=== PATIENT | female | born 1940 | race Caucasian/White ===

== ENCOUNTER 2017-10-19 07:02 | Inpatient (IN) | payer OTHER ==
[2017-09-21 11:48] VITALS: Ht 162.6 cm; Wt 72.3 kg
--- NOTE | 2017-09-21 12:22 | PAT Medication Instructions ---
Service Date Sep 21, 2017. Current Home Medication List Acetaminophen (Tylenol Arthritis Ext Rel), 1,300 MG PO PRN Alendronate Sodium (Fosamax), 70 MG PO WK Aspirin (Aspirin Ec), 325 MG PO QAM Atorvastatin (Lipitor), 20 MG PO QPM Lisinopril (Zestril), 20 MG PO QAM [Niacin], 4 TAB PO HS Medication Instructions For Your Scheduled Surgery -Continue as directed: Alendronate Sodium (Fosamax), 70 MG PO WK - Check with your surgeon for instructions for: Aspirin (Aspirin Ec), 325 MG PO QAM - Hold the following medications the night before: [Niacin], 4 TAB PO HS - Hold the following medications the morning of surgery: Lisinopril (Zestril), 20 MG PO QAM - Take the following medications the morning of surgery with a sip of water: Acetaminophen (Tylenol Arthritis Ext Rel), 1,300 MG PO PRN (if needed, can be taken up to four hours before surgery) - Take the following medications as scheduled the night before surgery: Acetaminophen (Tylenol Arthritis Ext Rel), 1,300 MG PO PRN Atorvastatin (Lipitor), 20 MG PO QPM If you have any questions please call us at [phone] or [phone] or [phone]
[2017-09-21 12:51] LABS: BASO % 0.4 %; BASO ABS # 0.03 K/uL (0-0.2); EOS % 2.4 %; EOS ABS # 0.19 K/uL (0-0.5); HEMATOCRIT 40.3 % (37-47); HEMOGLOBIN 14.6 g/dL (12.0-16.0); IG# 0.03 K/uL (0.00-0.02); LYMPH % 18.3 %; LYMPH ABS # 1.45 K/uL (1.2-3.4); MEAN CELL VOLUME 79.3 fL (80-100); MEAN CORPUSCULAR HEMOGLOBIN 28.7 pg (25-34); MEAN CORPUSCULAR HGB CONC 36.2 g/dl (32-36); MEAN PLATELET VOLUME 10.2 fL (7.4-10.4); MONO % 7.6 %; NEUT % 70.9 %; NEUT ABS # 5.62 K/uL (1.4-6.5); PLATELET COUNT 263 K/uL (130-400); RED CELL DISTRIBUTION WIDTH CV 15.1 % (11.5-14.5); RED CELL DISTRIBUTION WIDTH SD 43.6 fL (36.4-46.3); WHITE BLOOD COUNT 7.92 K/uL (4.8-10.8)
[2017-09-21 12:59] LABS: INR 0.9 (0.9-1.1); PTT PATIENT 23.3 SECONDS (21.0-31.0)
--- NOTE | 2017-09-21 13:08 | DIAGNOSTIC IMAGING REPORT ---
CHEST 2 VIEWS ROUTINE CLINICAL HISTORY: 77 years-old Female presenting with preoperative assessment. TECHNIQUE: PA and lateral views of the chest were obtained. COMPARISON: None. FINDINGS: Cardiomediastinal silhouette normal. Lungs and pleural spaces clear. Osseous structures normal. Upper abdomen normal. IMPRESSION: 1. No acute cardiopulmonary disease. Electronically signed by: Gallo Parekh M.D. 09/21/2017 1:06 PM Dictated Date/Time: 09/21/2017 1:06 PM
[2017-09-21 13:13] LABS: HEMOGLOBIN A1C 6.3 % (4.5-5.6)
[2017-09-21 13:51] LABS: ALBUMIN 3.9 gm/dl (3.4-5.0); CALCIUM 8.7 mg/dl (8.5-10.1); CREATININE 0.63 mg/dl (0.60-1.20); POTASSIUM 3.8 mmol/L (3.5-5.1)
--- NOTE | 2017-09-28 14:03 | HISTORY & PHYSICAL EXAMINATION ---
DATE OF ADMISSION: 10/19/2017 CHIEF COMPLAINT: Right knee pain. HISTORY OF PRESENT ILLNESS: Mr. Reddy is a 77-year-old female with a multiple year history of right knee pain. The patient rates her pain at 8/10. She has pain with her daily activities. She has limited standing and walking tolerance. Pain is worse with weightbearing. The patient has had injections, bracing, home exercise program and Tylenol without relief. She currently ambulates with a cane. She has failed conservative treatment and is scheduled for an elective right knee replacement. PAST MEDICAL HISTORY: Lyme disease, hypertension, hypercholesterolemia, borderline diabetes and a history of colon cancer. She denies heart disease or DVT. PAST SURGICAL HISTORY: Hysterectomy and colostomy. SOCIAL HISTORY: The patient denies alcohol or tobacco use. She lives in a single story home with her and is retired. FAMILY HISTORY: Negative for DVT. MEDICATIONS: Atorvastatin 20 mg daily, lisinopril 20 mg daily, alendronate 70 mg weekly, aspirin 81 mg daily, Tylenol p.r.n., and niacin 500 mg. ALLERGIES: None. REVIEW OF SYSTEMS: See HPI. Ten other systems reviewed, all negative. PHYSICAL EXAMINATION: VITAL SIGNS: Height 5 feet 4 inches, weight 159 pounds, and BMI 27. GENERAL: This is a well-developed and well-nourished female, who is alert and oriented x3. Mood and affect are appropriate. HEENT: Normocephalic and atraumatic. Mucous membranes are moist and intact. NECK: Supple without lymphadenopathy. HEART: Regular rate and rhythm without murmurs, rubs or gallops. LUNGS: Clear to auscultation without wheezes or rhonchi. ABDOMEN: Soft and nontender. Bowel sounds are equal and active. She does have colostomy bag. EXTREMITIES: No ecchymosis, redness or warmth. She has varus deformity. Range of motion is from 5-110 degrees with no laxity. She has moderate effusion. She is neurovascularly intact with +5/5 strength. X-RAY EXAMINATION: AP and lateral views show joint space narrowing and osteophyte formation. IMPRESSION: Degenerative joint disease, right knee. PLAN: The patient will be admitted for a right total knee arthroplasty. We will plan on aspirin for DVT prophylaxis. The patient will have [facility] for home physical therapy on discharge. PCP is Dr. Landa in [place].
[~2017-10-19] VITALS: Ht 162.6 cm; Wt 72.3 kg
[2017-10-19] VITALS (9 sets, daily range): BP systolic 109–146; BP diastolic 64–99; PULSE 77–103; TEMP 36.4–36.7; O2SAT 92–96
[~2017-10-19 07:02] MED LIST: ACET1TAB84 PO; ACETAMINOPHEN 500 MG TAB PO SCH; ALEN70TA2 PO; ASPI325T39 PO; ATOR-22 PO; BUPIVACAINE 0.5 % 5 MG/1 ML PF 10ML VIAL ONE; CEFAZOLIN 1000MG IV PUSH 7.5 ML IV SCH; CeleBREX 200 MG CAP PO SCH; DEXAMETHASONE 4 MG TAB PO SCH; FAMOTIDINE 20 MG TAB PO SCH; GABAPENTIN 300 MG CAP PO SCH; LACTATED RINGER'S 1000ML 1,000 ML IV SCH; LACTATED RINGER'S 1000ML 500 ML IV SCH; LISI-725 PO; METOCLOPRAMIDE HCL 10 MG TAB PO SCH; NIACIN PO; ROPIVACAINE 0.5% 5 MG/ML 30 ML VIAL ONE; ROPIVACAINE 5MG/ML 30 ML 150 MG, BUPIVACAINE 0.5% MPF INJ 30 ML, EpINEphrine HCL INJ 0.... INFIL SCH
--- NOTE | 2017-10-19 07:20 | History & Physical Bridge Note ---
H&P Re-Evaluation Bridge Note: I have examined the patient, reviewed the History & Physical and in the interval since the performance of the History & Physical I have noted the following changes of clinical significance: No changes noted
[2017-10-19] MEDS ORDERED: BUPIVACAINE 0.25% 30 ML VIAL ONE (07:30)
[2017-10-19] MEDS ORDERED: ATROPINE SULFATE 0.1 MG/ML 5ML SYR IV PRN (07:45)
[2017-10-19] MEDS ORDERED: HYDROmorphone INJ 1 MG/ML SYR IV PRN (07:45)
[2017-10-19] MEDS ORDERED: EpHEDrine SULFATE INJ 50 MG/ML AMP IV PRN (07:45)
[2017-10-19] MEDS ORDERED: FENTANYL CITRATE INJ 50 MCG/1 ML 2 ML VIAL IV PRN (07:45)
[2017-10-19] MEDS ORDERED: ONDANSETRON INJ 2 MG/ML 2 ML VIAL IV PRN ×2 (07:45→11:00)
[2017-10-19] MEDS ORDERED: PHENYLEPHRINE 100MCG/ML 5ML SYR IV PRN (07:45)
[2017-10-19 08:19] LABS: ISTAT CREATININE 0.5 mg/dl (0.6-1.3); ISTAT IONIZED CALCIUM 1.15 mmol/l (1.12-1.32); ISTAT POTASSIUM 3.8 mEq/L (3.3-5.0)
[2017-10-19] MEDS ORDERED: BACITRACIN 50000 UNIT VIAL ONE (08:40)
[2017-10-19] MEDS ORDERED: POVIDONE-IODINE OP SOLN 30 ML BTL ONE (08:40)
[2017-10-19] MEDS ORDERED: ORTHO JOINT ANESTHETIC ONE (08:40)
[2017-10-19] MEDS ORDERED: MIDAZOLAM HCL 1 MG/ML 2ML VIAL ONE (09:13)
[2017-10-19] MEDS ORDERED: FENTANYL CITRATE INJ 50 MCG/1 ML 2 ML VIAL ONE (09:14)
[2017-10-19] MEDS: TRANEXAMIC ACID INJ 1,000 MG x 2 Bags IV SCH ×4 (09:15→12:59)
[2017-10-19] MEDS ORDERED: PROPOFOL IV EMULSION 10 MG/ML 20 ML VIAL IV ONE (09:59)
[2017-10-19] MEDS ORDERED: EpHEDrine SULFATE 50MG/5ML SYR ONE (09:59)
[2017-10-19] MEDS ORDERED: LIDOCAINE HCL 2% 2 ML VIAL (20MG/ML) ONE (09:59)
[2017-10-19] MEDS ORDERED: PHENYLEPHRINE 100MCG/ML 5ML SYR ONE (10:30)
[2017-10-19] MEDS ORDERED: METOCLOPRAMIDE HCL INJ 5 MG/ML 2 ML VIAL IV PRN (11:00)
[2017-10-19] MEDS ORDERED: MAGNESIUM HYDROXIDE SUSP 30 ML UDC PO PRN (11:00)
[2017-10-19] MEDS ORDERED: ALUMINUM/MAGNESIUM/SIMETH (MAALOX MAX) 30 ML UDC PO PRN (11:00)
[2017-10-19] MEDS ORDERED: ZOLPIDEM TARTRATE 5 MG TAB PO PRN (11:00)
[2017-10-19] MEDS ORDERED: MoRPHine SULFATE 2 MG/ML CARP IV PRN (11:00)
[2017-10-19] MEDS ORDERED: CEFAZOLIN IV 1,000 MG in DEXTROSE 5% 50ML 50 ML IV SCH (11:00)
--- NOTE | 2017-10-19 11:00 | OPERATIVE REPORT ---
DATE OF OPERATION: 10/19/2017 PREOPERATIVE DIAGNOSIS: Osteoarthritis, right knee. POSTOPERATIVE DIAGNOSIS: Osteoarthritis, right knee. PROCEDURE: Right total knee arthroplasty. SURGEON: Dr. Guidry. PROGRAMS ASSISTANT: Omkar Mcclain PA-C ANESTHESIA: Spinal. COMPLICATIONS: None. OPERATION AND FINDINGS: Following induction of spinal anesthesia, the patient's right leg was prepped and draped in the usual sterile manner. Limb was exsanguinated with an Esmarch bandage and tourniquet was inflated to 350 mmHg. A longitudinal incision was made anteriorly. Subcutaneous tissue was sharply dissected. Electrocautery was used for hemostasis. Prepatellar bursa was incised and median parapatellar incision was performed. Patella was everted and the knee was flexed. Fat pad was removed to aid in visualization and the anterior and posterior cruciate ligaments were removed. The medial face of the tibia was cleared of soft tissue first with a Bovie and a Troy elevator. This tissue was retracted posteriorly using a blunt Hohmann. A Boone retractor was used to expose the synovium above on the anterior aspect of the femur and this was removed down to bone. The PSI guide was placed on the distal femur and two pins were placed anteriorly and kept in position and two additional pins were placed distally and removed. The distal femoral cutting block was placed in position and the distal femoral cut was used in the +0 setting. Next, the cutting block was removed and the femoral 3 block was placed in the distal end of the femur. Care was taken to ensure appropriate external rotation and feeler gauge was used to ensure no notching would occur. The femoral block was centered on the distal femur and in the medial and lateral direction and was fixed using two bone screws. The gold pins were then removed. The oscillating saw was used to create the bone cuts and the distal femoral cutting block was removed and the reciprocating saw was used to further trim the femoral cuts as well as a deep in the area for the trochlear groove. Next, posterior condyle remnants were removed. Following this, a meniscal clamp and knife were utilized to remove the anterior portion of both medial and lateral meniscus. The proximal tibia PSI guide was placed into position and the proximal tibial cutting guide was screwed into position. The extra medullary alignment guide was utilized to ensure appropriate alignment. The proximal tibia was cut and the proximal tibial cutting block was removed and this bone fragment was removed. The appropriate guide was used to perform the notch cut on the distal femur and a lamina manager combination and a cochlear knife were utilized to finish both medial and lateral meniscectomies to remove any remnants of the posterior or anterior cruciate ligaments. Following this, the distal femoral component was impacted into position and blunt Gavin was used to sublux the tibia anteriorly. The proximal tibia was sized and a 3 tibial tray was chosen as the size to be used. This was put into position and appropriate external rotation and a double check with extramedullary alignment guide was performed. The canal for the tibial stem was prepared first with a 17 mm drill and then the punch and a mallet and the trial tibial poly was placed. A 16 was chosen the size to be used. It was brought to extension and the patella was prepared with the patellar reamer. A 33 component was chosen the size to be used. The trial component was placed and knee was taken through a full range of motion and there was found to be no lateral subluxation of the tibia. No lateral release was required. The trials were all removed. The final components were obtained and assembled. Cement was mixed. The knee was thoroughly irrigated and the ortho mix was injected about the knee joint. The final components were cemented into position. After thoroughly suctioning and drying the bone ends, all excess cement was removed. The knee was held in extension while the cement hardened. The wound was irrigated and closed over a Hemovac drain. #1 Vicryl was used to close the extensor mechanism. Subcutaneous tissues closed using 0 Dexon. Skin was closed with en. Sterile dressing of Adaptic, 4 x 4's, sterile Webril, and Mark was applied. The patient tolerated the procedure well. Due to the complex nature of the procedure, the entire surgery was performed with the operational assistance of Omkar Mcclain PA-C. The assistant in nursing, under direct supervision, was involved in the actual performance of all aspects of the surgical procedure including hemostasis, tissue retraction and incision, instrument management, patient positioning, and wound closure. DISPOSITION: Recovery room, stable. I attest to the content of the Intraoperative Record and any orders documented therein. Any exception s are noted below.
[2017-10-19] MEDS ORDERED: MoRPHine SULFATE 4 MG/ML 1 ML CARP\\VIAL IV PRN (11:30)
--- NOTE | 2017-10-19 11:44 | DIAGNOSTIC IMAGING REPORT ---
R KNEE 1 OR 2 VIEWS ROUTINE CLINICAL HISTORY: AP/LATERAL IN PACU RIGHT KNEE postoperative evaluation COMPARISON: None. DISCUSSION: Total right knee arthroplasty. Good contact between prosthetic and underlying bone. Expected soft tissue postoperative change. IMPRESSION: Anatomic alignment posttotal right knee arthroplasty. The above report was generated using voice recognition software. It may contain grammatical, syntax or spelling errors. Electronically signed by: Bubba Ansari M.D. 10/19/2017 11:43 AM Dictated Date/Time: 10/19/2017 11:42 AM
--- NOTE | 2017-10-19 12:02 | Anesthesiology Progress Note ---
Anesthesia Post Op Note Date & Time Oct 19, 2017 at 12:02 Vital Signs Pain Intensity: 0 Vital Signs Past 12 Hours Date Time Temp Pulse Resp B/P (MAP) Pulse Ox O2 Delivery O2 Flow Rate FiO2 10/19/17 11:55 86 17 114/67 95 Nasal Cannula 2 10/19/17 11:45 36.5 86 15 127/67 93 Nasal Cannula 2 10/19/17 11:35 81 20 107/71 97 Nasal Cannula 2 10/19/17 11:25 82 25 115/67 95 Nasal Cannula 2 10/19/17 11:15 77 19 98/65 96 Oxymask 10 10/19/17 11:05 79 14 113/64 96 Oxymask 10 10/19/17 10:57 36.6 84 16 105/63 94 Oxymask 10 10/19/17 07:45 36.7 95 20 146/99 94 Room Air Notes Mental Status: alert / awake / arousable, participated in evaluation Pt Amnestic to Procedure: Yes Nausea / Vomiting: adequately controlled Pain: adequately controlled Airway Patency, RR, SpO2: stable & adequate BP & HR: stable & adequate Hydration State: stable & adequate Neuraxial Anesthesia: was administered, sensory block is resolving Anesthetic Complications: no major complications apparent
[2017-10-19] MEDS ORDERED: D5W AND 1/2NSS + 20MEQ KCL 1,000 ML IV SCH (13:00)
[2017-10-19] MEDS: FERROUS GLUCONATE 324 MG TAB PO SCH ×2 (13:35→17:52)
[2017-10-19] MEDS: ACETAMINOPHEN 500 MG TAB PO SCH (15:17)
[2017-10-19] MEDS: KETOROLAC TROMETHAMINE 15 MG/ML VIAL IV. SCH ×2 (15:19→22:25)
[2017-10-19] MEDS ORDERED: NURSING VERBAL MED ORDER ONE (16:45)
[2017-10-19] MEDS: SODIUM CHLORIDE 0.9% 1000ML 1,000 ML IV SCH (17:06)
[2017-10-19] MEDS: CEFAZOLIN IV 1,000 MG in SYRINGE 0 ML IV SCH (17:53)
[2017-10-19] MEDS: OXYCODONE HCL IR 5 MG TAB (IMMEDIATE RELEASE) PO PRN (19:38)
[2017-10-19] MEDS: ATORVASTATIN 20 MG TAB PO SCH (20:37)
[2017-10-19] MEDS: DOCUSATE SODIUM 100 MG CAP PO SCH (20:37)
[2017-10-19] MEDS: ASPIRIN 81 MG ECTAB PO SCH (20:37)
[2017-10-19] MEDS ORDERED: NIACIN PO SCH (21:00)
--- NOTE | 2017-10-19 21:14 | Medical Consult ---
Consultation Date of Consultation: Oct 19, 2017. Attending Physician: Harpreet Guidry M.D. Reason for Consultation: Medical management History of Present Illness 77-year-old female with a past medical history of hypertension, hyperlipidemia, prediabetes, history of colon cancer status post colostomy 12 years ago presented was admitted for right total knee arthroplasty after she failed conservative management for right knee osteoarthritis. Right TKA was performed this afternoon and medicine was consulted for medical management. Denies any chest pain, shortness of breath, palpitations. Stated that her pain is well controlled and she was able to walk after the surgery. Denies any numbness or tingling of the affected limb Past Medical/Surgical History PMH: HTN, HLD, prediabetes, Colon cancer, Osteoarthritis PSH: colostomy Social History Smoking Status: Never Smoker Allergies Coded Allergies: No Known Allergies (Unverified , 10/19/17) Current Inpatient Medications Current Inpatient Medications Medications (Trade) Dose Ordered Sig/Jose Route Start Time Stop Time Status Last Admin Dose Admin Lactated Ringer's 1,000 ml @ 15 mls/hr Q24H IV 10/19/17 06:00 10/20/17 05:59 Ketorolac Tromethamine (Toradol Inj) 15 mg Q6H IV. 10/19/17 16:00 10/20/17 15:59 10/19/17 15:19 15 MG Oxycodone HCl (Roxicodone Immediate Rel Tab) 1 TABLET FOR PAIN RATING... Q4H PRN PO 10/19/17 11:00 11/02/17 10:59 10/19/17 19:38 10 MG Morphine Sulfate (MoRPHine SULFATE INJ) 2 mg Q2HWA PRN IV 10/19/17 11:00 11/02/17 10:59 Acetaminophen (Tylenol Tab) 1,000 mg Q8H PO 10/19/17 16:00 11/18/17 15:59 10/19/17 15:17 1,000 MG Magnesium Hydroxide (Milk Of Magnesia Susp) 30 ml Q6H PRN PO 10/19/17 11:00 11/18/17 10:59 Docusate Sodium (coLACE CAP) 100 mg BID PO 10/19/17 21:00 11/18/17 20:59 10/19/17 20:37 100 MG Diphenhydramine HCl (Benadryl Cap) 25 mg Q8H PRN PO 10/19/17 11:00 11/18/17 10:59 Al Hydrox/Mg Hydrox/Simethicone (Maalox Max Susp) 15 ml Q4H PRN PO 10/19/17 11:00 11/18/17 10:59 Zolpidem Tartrate (Ambien Tab) 5 mg HSZ PRN PO 10/19/17 11:00 11/18/17 10:59 Multivitamins (Multivitamin Tab) 1 tab QAM PO 10/20/17 09:00 11/19/17 08:59 Ondansetron HCl (Zofran Inj) 4 mg Q6H PRN IV 10/19/17 11:00 11/18/17 10:59 Metoclopramide HCl (Reglan Inj) 10 mg Q6H PRN IV 10/19/17 11:00 11/18/17 10:59 Ferrous Gluconate (Ferrous Gluconate Tab) 324 mg TIDM PO 10/19/17 12:30 11/18/17 12:29 10/19/17 17:52 324 MG Pantoprazole Sodium (Protonix Tab) 40 mg QAM PO 10/20/17 09:00 10/24/17 08:59 Dexamethasone Sodium Phosphate 10 mg/Syringe 2.5 ml @ 1 mls/min ONE ONCE IV 10/20/17 07:30 10/20/17 07:32 Aspirin (Ecotrin Tab) 81 mg BID PO 10/19/17 21:00 11/18/17 20:59 10/19/17 20:37 81 MG Atorvastatin Calcium (Lipitor Tab) 20 mg QPM PO 10/19/17 21:00 11/18/17 20:59 10/19/17 20:37 20 MG Lisinopril (Zestril Tab) 20 mg QAM PO 10/20/17 09:00 11/19/17 08:59 Morphine Sulfate (MoRPHine SULFATE INJ) 4 mg Q2HWA PRN IV 10/19/17 11:30 11/02/17 11:29 Cefazolin Sodium 1000 mg/Syringe 7.5 ml @ 2.5 mls/min Q8H IV 10/19/17 18:00 10/20/17 02:02 10/19/17 17:53 2.5 MLS/MIN Sodium Chloride 1,000 ml @ 100 mls/hr Q10H IV 10/19/17 17:00 11/18/17 16:59 10/19/17 17:06 100 MLS/HR Review of Systems Constitutional: No fever, No chills Eyes: No worsening of vision ENT: No hearing loss Respiratory: No cough, No sputum Cardiovascular: No chest pain Abdomen: No pain, No nausea, No vomiting Musculoskeletal: + joint pain (S/p Right TKA - well controlled pain) Genitourinary - Female: No dysuria, No urinary frequency Neurologic: No memory loss Psychiatric: No depression symptoms Endocrine: No fatigue Hematologic / Lymphatic: No abnormal bleeding/bruising Physical Exam Date Time Temp Pulse Resp B/P (MAP) Pulse Ox O2 Delivery O2 Flow Rate FiO2 10/19/17 19:33 36.5 93 16 144/84 (104) 95 Room Air 10/19/17 15:10 36.5 96 16 128/73 (91) 96 Nasal Cannula 2.0 10/19/17 15:05 Nasal Cannula 2.0 10/19/17 13:37 94 17 113/71 (85) 95 Nasal Cannula 2.0 10/19/17 13:15 103 18 109/68 (82) 92 Nasal Cannula 2.0 10/19/17 12:45 92 16 132/76 (94) 95 Nasal Cannula 2.0 10/19/17 12:15 95 Nasal Cannula 2.0 10/19/17 12:15 95 Nasal Cannula 2.0 10/19/17 12:12 36.7 87 13 117/64 (81) 95 Nasal Cannula 2.0 10/19/17 12:00 83 17 106/66 94 Nasal Cannula 2 10/19/17 11:55 86 17 114/67 95 Nasal Cannula 2 10/19/17 11:45 36.5 86 15 127/67 93 Nasal Cannula 2 10/19/17 11:35 81 20 107/71 97 Nasal Cannula 2 10/19/17 11:25 82 25 115/67 95 Nasal Cannula 2 10/19/17 11:15 77 19 98/65 96 Oxymask 10 10/19/17 11:05 79 14 113/64 96 Oxymask 10 10/19/17 10:57 36.6 84 16 105/63 94 Oxymask 10 10/19/17 07:45 36.7 95 20 146/99 94 Room Air General Appearance: WD/WN, no apparent distress Eyes: normal inspection ENT: hearing grossly normal Neck: supple Respiratory/Chest: chest non-tender, lungs clear, normal breath sounds, no respiratory distress Cardiovascular: regular rate, rhythm Abdomen/GI: normal bowel sounds, non tender, soft Back: normal inspection Extremities/Musculoskelatal: no pedal edema, + pertinent finding (Rt knee s/p TKA covered on dressing, neurovascularly intact) Neurologic/Psych: alert, normal mood/affect, oriented x 3 Laboratory Results Last 24 Hours Test 10/19/17 07:53 10/19/17 07:57 10/19/17 11:20 10/19/17 17:07 Bedside Hemoglobin 13.6 g/dl Bedside Hematocrit 40 % Bedside Sodium 141 mEq/L Bedside Potassium 3.8 mEq/L Bedside Chloride 106 mEq/L Bedside Total CO2 22 mEq/l Anion Gap 18.0 mmol/L Bedside Blood Urea Nitrogen 14 mg/dl Bedside Creatinine 0.5 mg/dl Bedside Glucose (other) 162 mg/dl Bedside Ionized Calcium (Jessica) 1.15 mmol/l Bedside Glucose 158 mg/dl 175 mg/dl 241 mg/dl Assessment & Plan 77-year-old female with a past medical history of hypertension, hyperlipidemia, prediabetes, history of colon cancer status post colostomy 12 years ago presented was admitted for right total knee arthroplasty after she failed conservative management for right knee osteoarthritis. Right knee status post total knee arthroplasty: Management per -Management per orthopedics Hypertension: - Blood pressure appears to be well controlled - Continue Zestril 20 mg daily Hyperlipidemia: -Continue Lipitor 20 mg daily and niacin Prediabetes: - hemoglobin A1c at 6.3 -Monitor blood sugar and may use insulin sliding scale as needed DVT prophylaxis: Aspirin Thank you for the consultation. Patient appears to be stable with current medical management. Please contact us if you any acute need arises Resident Physician Supervision Note: I was present with Dr. Mcgregor during the history and exam. I discussed the case with the resident and agree with the findings and plan as documented in the note. Any exceptions or clarifications are listed here: 77 y/o F Hx HTN, HPL, history of colon cancer - post colostomy 12 years ago presented for elective R TKA. Pt recovering well post-op - denies CP, SOB, N/V or fevers - pain is currently cpntrolled. OE AAO x 3 S1,2 R CTAB NT, ND No CCE P: Cont Zestril for HTN Cont Lipitor Anticoagulation and PT/OT to discretion of orthopedics Pt is stable post-op Med will sign off will call clerk for any acute issues Documented By: Dinesh Garcia Resident Tracking Resident Involvement: Resident Care Provided Care Provided: Adult Hospital Medicine
[2017-10-20] MEDS: ACETAMINOPHEN 500 MG TAB PO SCH ×3 (00:01→18:10)
[2017-10-20] MEDS ORDERED: DEXTROSE 50% 50 ML SYR IV PRN (00:45)
[2017-10-20] MEDS ORDERED: GLUCAGON FOR INJ 1 MG VIAL SQ PRN (00:45)
[2017-10-20] MEDS ORDERED: GLUCOSE 10 TABS/TUBE PO PRN (00:45)
[2017-10-20] MEDS ORDERED: GLUCOSE 40% GEL 15 GM TUBE PO PRN (00:45)
[2017-10-20] MEDS: SODIUM CHLORIDE 0.9% 1000ML 1,000 ML IV SCH ×2 (02:18→13:12)
[2017-10-20] MEDS: CEFAZOLIN IV 1,000 MG in SYRINGE 0 ML IV SCH (02:18)
[2017-10-20 03:30] VITALS: BP 112/71; PULSE 74; TEMP 36.5; O2SAT 96
[2017-10-20] MEDS: KETOROLAC TROMETHAMINE 15 MG/ML VIAL IV. SCH ×2 (03:39→09:22)
[2017-10-20 06:07] LABS: HEMATOCRIT 32.4 % (37-47); HEMOGLOBIN 11.5 g/dL (12.0-16.0); MEAN CELL VOLUME 79.8 fL (80-100); MEAN CORPUSCULAR HEMOGLOBIN 28.3 pg (25-34); MEAN CORPUSCULAR HGB CONC 35.5 g/dl (32-36); MEAN PLATELET VOLUME 9.7 fL (7.4-10.4); PLATELET COUNT 241 K/uL (130-400); RED CELL DISTRIBUTION WIDTH CV 15.3 % (11.5-14.5); RED CELL DISTRIBUTION WIDTH SD 44.1 fL (36.4-46.3); WHITE BLOOD COUNT 14.63 K/uL (4.8-10.8)
[2017-10-20 06:45] LABS: CALCIUM 7.9 mg/dl (8.5-10.1); CREATININE 0.74 mg/dl (0.60-1.20); POTASSIUM 4.3 mmol/L (3.5-5.1)
[2017-10-20] MEDS ORDERED: DEXAMETHASONE INJ 10 MG in SYRINGE 0 ML IV ONE (07:30)
[2017-10-20] MEDS: DOCUSATE SODIUM 100 MG CAP PO SCH ×2 (07:41→20:54)
[2017-10-20] MEDS: LISINOPRIL 20 MG TAB PO SCH (07:42)
[2017-10-20] MEDS: PANTOprazole SOD 40 MG TAB PO SCH (07:42)
[2017-10-20] MEDS: ASPIRIN 81 MG ECTAB PO SCH ×2 (07:43→20:54)
[2017-10-20 07:55] VITALS: BP 150/82; PULSE 80; TEMP 36.4; O2SAT 94
--- NOTE | 2017-10-20 08:07 | Orthopedic Progress Note ---
Orthopedic Progress Note Date of Service Oct 20, 2017. Subjective Post OP Day: 1 Reports: feeling well Objective N/V intact, dressing C/D/I (Hemovac d/c'd), toes mobile Date Time Temp Pulse Resp B/P (MAP) Pulse Ox O2 Delivery O2 Flow Rate FiO2 10/20/17 07:55 36.4 80 16 150/82 (104) 94 Room Air 10/20/17 07:39 Room Air 10/20/17 03:30 36.5 74 16 112/71 (85) 96 Room Air 10/19/17 23:55 Room Air 10/19/17 23:21 36.4 77 16 111/66 (81) 95 Room Air 10/19/17 19:33 36.5 93 16 144/84 (104) 95 Room Air 10/19/17 15:10 36.5 96 16 128/73 (91) 96 Nasal Cannula 2.0 10/19/17 15:05 Nasal Cannula 2.0 10/19/17 13:37 94 17 113/71 (85) 95 Nasal Cannula 2.0 10/19/17 13:15 103 18 109/68 (82) 92 Nasal Cannula 2.0 10/19/17 12:45 92 16 132/76 (94) 95 Nasal Cannula 2.0 10/19/17 12:15 95 Nasal Cannula 2.0 10/19/17 12:15 95 Nasal Cannula 2.0 10/19/17 12:12 36.7 87 13 117/64 (81) 95 Nasal Cannula 2.0 10/19/17 12:00 83 17 106/66 94 Nasal Cannula 2 10/19/17 11:55 86 17 114/67 95 Nasal Cannula 2 10/19/17 11:45 36.5 86 15 127/67 93 Nasal Cannula 2 10/19/17 11:35 81 20 107/71 97 Nasal Cannula 2 10/19/17 11:25 82 25 115/67 95 Nasal Cannula 2 10/19/17 11:15 77 19 98/65 96 Oxymask 10 10/19/17 11:05 79 14 113/64 96 Oxymask 10 10/19/17 10:57 36.6 84 16 105/63 94 Oxymask 10 Laboratory Results 24 Hours: Test 10/20/17 05:47 Hematocrit 32.4 % Hemoglobin 11.5 g/dL Assessment & Plan Assessment: 77 yo female stable POD #1 s/p right TKA Plan: 1. Med management 2. DVT prophylaxis- ASA, SCDs 3. PT/OT 4. D/C planning- pt interested in HH
--- NOTE | 2017-10-20 08:08 | Discharge Instructions ---
Discharge Instructions Date of Service Oct 20, 2017. Admission Reason for Admission: Right Knee Osteoarthritis Discharge Discharge Diagnosis / Problem: Right knee arthritis Discharge Goals Goal(s): Decrease discomfort, Improve function Activity Recommendations Activity Limitations: as noted below Weightbearing Status: Right weightbearing (as tolerated) . Instructions / Follow-Up Instructions / Follow-Up ACTIVITY RECOMMENDATIONS: SELF CARE INSTRUCTIONS AFTER TOTAL KNEE REPLACEMENT A. You may need to continue a physical therapy program after discharge from the hospital. There are several options available to you. Your doctor will assist you in selecting the best one for you. 1. An out-patient facility 2 to 3 times a week for therapy or home therapy. 2. Continue working on all exercises taught to you in the hospital. Your goals should be to increase bending of your knee to 90 degrees and beyond and to fully straighten your knee. B. You may progress at your own pace from walking with a walker or crutches to a cane; then to no assistive devices. C. Make walking a part of your daily routine. Be up as much as comfortable with rest periods throughout the day. Rest with leg elevation is very important. Use the ice wrap frequently for the first 3-4 weeks. D. There are no restrictions on activities. You may ride in a car, shop, participate in inspector hairspring and all social activities. E. Wear the long elastic stockings (JORGE hose) 20 hours a day for 2 weeks after surgery. They can be removed several times a day for laundering and for a bath. F. You may shower, no tub baths until cleared by your doctor. SPECIAL CARE INSTRUCTIONS: VERY IMPORTANT TO READ AND REVIEW A. There are a few signs you need to watch for after you are home. Call [facility] if you notice any of the followin. Increased severe knee pain. Some pain is expected especially when you exercise. 2. Increased swelling in your leg or knee; pain or swelling of the calf muscle in either lower leg. 3. Any fluid drainage from the incision. 4. Shortness of breath or chest pain. B. Please call [facility] at if you have any concerns or questions about your operation or recovery. The doctor or his nurse will return your call promptly. C. You must take antibiotics before dental work, bladder, bowel or other surgery. Your doctor will provide you with a permanent care to carry describing this precaution. IMPORTANT: * REMEMBER TO TAKE ASPIRIN, 81 MG, TWICE DAILY FOR 4 WEEKS UNLESS OTHERWISE DIRECTED. THIS IS YOUR BLOOD THINNER. * HIGH RISK PATIENTS MAY BE PRESCRIBED A STRONGER BLOOD THINNER. THIS WILL BE PROVIDED AT DISCHARGE. * CALL IF INCREASED PAIN, REDNESS, DRAINAGE OR FEVER GREATER THAT 101. * WEAR JORGE HOSE 20 HOURS PER DAY FOR 2 WEEKS. Silverlon- This is a large adhesive bandage that contains silver ions. This helps your incision heal by fighting off bacteria and protecting it from the outside environment. You are permitted to shower with this dressing. This will remain on your incision for 7 days and then should be removed. Some visible blood or drainage through the dressing window is normal. If there is significant drainage or leaking noted before the 7 days notify your doctor's office immediately. Once removed, keep incision clean and dry. If there is any drainage or redness noted, please call your surgeon. Maintain Zipline closure when removing Silverlon. FOLLOW UP VISIT: If appointment is not already scheduled: Please call [facility] to make a follow-up appointment for 2 weeks after your surgery at . Current Hospital Diet Patient's current hospital diet: Diabetes Type 2 Diet Discharge Diet Recommended Diet: Diabetes Type 2 Diet Procedures Procedures Performed: Right Total Knee Arthroplasty Pending Studies Studies pending at discharge: no Laboratory Results Hemoglobin A1c Test 09/21/17 12:33 Range/Units Estimated Average Glucose 134 mg/dl Hemoglobin A1c 6.3 H 4.5-5.6 % Medical Emergencies . Who to Call and When: Medical Emergencies: If at any time you feel your situation is an emergency, please call 911 immediately. . Non-Emergent Contact Non-Emergency issues call your: Surgeon Call Non-Emergent contact if: temperature is above 101.5, your pain is not controlled, wound has increased drainage, wound has increased redness . "Provider Documentation" section prepared by Omkar Mcclain PA-C. . [place] Drug Monitoring Program Search Results: patient reviewed within database, no issues identified
[2017-10-20] MEDS: FERROUS GLUCONATE 324 MG TAB PO SCH ×3 (09:20→18:09)
[2017-10-20] MEDS: MULTIVITAMIN TAB PO SCH (09:20)
[2017-10-20] MEDS: INSULIN ASPART 100 UNITS/ML 3 ML PEN SC SCH ×4 (09:29→20:52)
[2017-10-20 10:33] VITALS: O2SAT 94
[2017-10-20 12:01] VITALS: BP 150/82; PULSE 78; TEMP 36.4; O2SAT 97
--- NOTE | 2017-10-20 12:25 | Clinical Documentation Query ---
CLINICAL DOCUMENTATION QUERY Dr. STOCKTON, In your clinical opinion is this patient being managed for: ( ) Acute blood loss anemia ( ) Not Agree ( ) Other explanation of clinical findings (Please Explain) ( ) Unable to determine (Please Define) ( ) Need to Discuss The medical record reflects the following clinical findings, treatment, and risk factors. Clinical Indicators: 77 yo female presenting with R knee DJD for a R TKA. Baseline Hgb 14.6/Hct 40.3 dropping to Hgb 11.5/Hct 32.4. EBL 10 cc with additional 95 cc hemovac drainage Treatment: IV fluids, monitor CBC Risk Factors: surgery Please clarify and document your clinical opinion in the progress notes and discharge summary. Terms such as "probable", "suspected", "likely", "questionable", "possible", or "still to be ruled out" are acceptable. IF IN AGREEMENT, YOU MUST DOCUMENT ABOVE DIAGNOSTIC STATEMENT IN DAILY PROGRESS NOTES AND DISCHARGE SUMMARY. This document is not part of the patient's record. Thank You, Naz Hickey RN [phone]
[2017-10-20] MEDS ORDERED: ACET-24 PO (14:27)
[2017-10-20] MEDS ORDERED: ASPEC81 PO (14:27)
[2017-10-20] MEDS ORDERED: RXC5 PO (14:27)
[2017-10-20 15:44] VITALS: BP 130/80; PULSE 77; TEMP 36.7; O2SAT 97
--- NOTE | 2017-10-20 20:11 | Progress Note ---
Subjective Date of Service: Oct 20, 2017. Subjective Pt evaluation today including: conversation w/ patient, physical exam, chart review, lab review Pain: knee, but controlled PO Intake: eating w/o difficulty Voiding: no voiding problems no issues overnight +flatus, no bowel movement yet no dyspnea, chest pain or abd pain Review of Systems Constitutional: No fever Respiratory: No shortness of breath, No dyspnea on exertion Cardiac: No chest pain Abdomen: No pain, No nausea, No vomiting Objective Vital Signs Date Time Temp Pulse Resp B/P (MAP) Pulse Ox O2 Delivery O2 Flow Rate FiO2 10/20/17 15:44 36.7 77 16 130/80 (97) 97 Room Air 77 10/20/17 12:01 36.4 78 16 150/82 (104) 97 Room Air 10/20/17 10:33 94 Room Air 10/20/17 07:55 36.4 80 16 150/82 (104) 94 Room Air 10/20/17 07:39 Room Air 10/20/17 03:30 36.5 74 16 112/71 (85) 96 Room Air 10/19/17 23:55 Room Air 10/19/17 23:21 36.4 77 16 111/66 (81) 95 Room Air Physical Exam General Appearance: no apparent distress ENT: pharynx normal Neck: no JVD Respiratory/Chest: lungs clear, no respiratory distress, no accessory muscle use Cardiovascular: regular rate, rhythm, no gallop, no murmur Abdomen: normal bowel sounds, non tender, soft, no organomegaly Extremities: + pedal edema (trace right leg; none on left), + pertinent finding (pulses 2+ b/l ) Neurologic/Psychiatric: alert, oriented x 3 Laboratory Results Last 24 Hours Test 10/19/17 21:06 10/20/17 05:47 10/20/17 07:55 10/20/17 12:01 Bedside Glucose 267 mg/dl 167 mg/dl 186 mg/dl White Blood Count 14.63 K/uL Red Blood Count 4.06 M/uL Hemoglobin 11.5 g/dL Hematocrit 32.4 % Mean Corpuscular Volume 79.8 fL Mean Corpuscular Hemoglobin 28.3 pg Mean Corpuscular Hemoglobin Concent 35.5 g/dl RDW Standard Deviation 44.1 fL RDW Coefficient of Variation 15.3 % Platelet Count 241 K/uL Mean Platelet Volume 9.7 fL Sodium Level 141 mmol/L Potassium Level 4.3 mmol/L Chloride Level 111 mmol/L Carbon Dioxide Level 21 mmol/L Anion Gap 9.0 mmol/L Blood Urea Nitrogen 16 mg/dl Creatinine 0.74 mg/dl Est Creatinine Clear Calc Drug Dose 64.0 ml/min Estimated GFR () 91.9 Estimated GFR (Non- 79.3 BUN/Creatinine Ratio 21.7 Random Glucose 177 mg/dl Calcium Level 7.9 mg/dl Test 10/20/17 17:07 Bedside Glucose 195 mg/dl Assessment and Plan 77yo female - 1. pre-DM - uncontrolled due to perioperative stress and decadron. Will adjust correction/carb coverage. Consider lantus if needed. 2. acute blood loss anemia - 2nd to TKR - agree with ferrous gluconate. 3. HTN - controlled. 4. s/p right TKR - per ortho. 5. DVT proph - asa BID as per ortho. 6. FEN - can d/c fluids; lytes stable; eating well. Will follow. Continued [facility] stay due to: multiple IV medications needed Discharge planning: home with home health
[2017-10-20] MEDS: ATORVASTATIN 20 MG TAB PO SCH (20:54)
[2017-10-20 22:37] VITALS: BP 149/92; PULSE 76; TEMP 36.5; O2SAT 98
[2017-10-21] MEDS: ACETAMINOPHEN 500 MG TAB PO SCH ×2 (00:07→08:09)
[2017-10-21 06:21] LABS: HEMATOCRIT 29.1 % (37-47); HEMOGLOBIN 10.3 g/dL (12.0-16.0)
[2017-10-21 06:40] LABS: CALCIUM 7.9 mg/dl (8.5-10.1); CREATININE 0.61 mg/dl (0.60-1.20)
[2017-10-21 06:41] VITALS: BP 142/82; PULSE 73; TEMP 36.7; O2SAT 96
[2017-10-21] MEDS: OXYCODONE HCL IR 5 MG TAB (IMMEDIATE RELEASE) PO PRN ×2 (08:09→12:46)
[2017-10-21] MEDS: MULTIVITAMIN TAB PO SCH (08:10)
[2017-10-21] MEDS: PANTOprazole SOD 40 MG TAB PO SCH (08:10)
[2017-10-21] MEDS: FERROUS GLUCONATE 324 MG TAB PO SCH ×2 (08:10→12:40)
[2017-10-21] MEDS: DOCUSATE SODIUM 100 MG CAP PO SCH (08:10)
[2017-10-21] MEDS: ASPIRIN 81 MG ECTAB PO SCH (08:10)
[2017-10-21] MEDS: LISINOPRIL 20 MG TAB PO SCH (08:11)
--- NOTE | 2017-10-21 08:33 | Orthopedic Progress Note ---
Orthopedic Progress Note Date of Service Oct 21, 2017. Subjective Post OP Day: 2 Reports: feeling well, Denies: complaints Objective calves soft nontender, N/V intact, dressing C/D/I (SILVERLON INTACT), A&O x3, toes mobile Date Time Temp Pulse Resp B/P (MAP) Pulse Ox O2 Delivery O2 Flow Rate FiO2 10/21/17 06:41 36.7 73 16 142/82 (102) 96 Room Air 10/20/17 22:37 36.5 76 16 149/92 (111) 98 Room Air 10/20/17 19:30 Room Air 10/20/17 15:44 36.7 77 16 130/80 (97) 97 Room Air 77 10/20/17 12:01 36.4 78 16 150/82 (104) 97 Room Air 10/20/17 10:33 94 Room Air Laboratory Results 24 Hours: Test 10/21/17 05:25 Hematocrit 29.1 % Hemoglobin 10.3 g/dL Assessment & Plan Assessment: 77 yo female stable POD #2 s/p right TKA Plan: Continue PT/OT Plan for dc to home today. Inhouse Planning Pain Management: Morphine, PO Tylenol, Oxy IR DVT Prophylaxis: TEDs, SCDs, ASA Discharge Planning Discharge Planning: home with home health
[2017-10-21] MEDS ORDERED: ASPI325T39 PO (08:36)
[2017-10-21] MEDS: INSULIN ASPART 100 UNITS/ML 3 ML PEN SC SCH ×2 (08:52→12:48)
[2017-10-21 11:01] VITALS: BP 142/82; PULSE 73; TEMP 36.7; O2SAT 96
--- NOTE | 2017-10-22 07:02 | Progress Note ---
Progress Note Date of Service Oct 22, 2017. Progress Note late entry for visit on the AM of 10/21/2017 - Hospitalist progress note time of this note 0700 on 10/22/17 S: pt excited for discharge denied any dyspnea, dyspnea on exertion, chest pain, abd pain, nausea minimal knee pain overall feels good no stool yet, but +flatus O: VSS, afebrile gen - nad neck - no JVD heart - RRR, s1, s2 lungs - CTA b/l, minimal atelectasis rales b/l bases abd - soft, NT, ND, BS+ ext - right knee dressing intact; minimal edema of right foot, none on left; pulses 2+ b/l Hb 10.3 Cr 0.6 77yo female - 1. pre-DM - was uncontrolled due to perioperative stress and decadron. FSBS gradually improving. Would not recommend any Rx at discharge. Sugars should normalize today. 2. acute blood loss anemia - 2nd to TKR - agree with ferrous gluconate at d/c for 1-2 months. 3. HTN - acceptable control. 4. s/p right TKR - per ortho. 5. DVT proph - asa BID as per ortho. 6. FEN - eating fine, lytes stable. 7. constipation - no BM yet, but passing flatus, and no evidence of ileus. I discussed bowel regimen with her for after discharge. from medical standpoint can d/c home today Ruddy Olguin MD
== END 2017-10-21 14:10 | disposition home health service (06) | DRG 470 ==
LOC: C.ACU 07:02 → C.3E 07:20 → ENRESERV 11:46
PROC: 0SRC0J9 Replacement of Right Knee Joint with Synthetic Substitute, Cemented, Open Approach (ICD-10-PCS; principal; 2017-10-19 09:15)
DX: M17.11 Unilateral primary osteoarthritis, right knee (principal); D62 Acute posthemorrhagic anemia; M21.161 Varus deformity, not elsewhere classified, right knee; M25.461 Effusion, right knee; R73.09 Other abnormal glucose; T38.0X5A Adverse effect of glucocorticoids and synthetic analogues, initial encounter; K59.00 Constipation, unspecified; I10 Essential (primary) hypertension; E78.00 Pure hypercholesterolemia, unspecified; E78.5 Hyperlipidemia, unspecified; M81.0 Age-related osteoporosis without current pathological fracture; R73.03 Prediabetes; Z79.82 Long term (current) use of aspirin; Z79.83 Long term (current) use of bisphosphonates; Z79.899 Other long term (current) drug therapy